=== PATIENT | male | born 1955 | race Caucasian/White ===

== ENCOUNTER 2017-08-11 07:27 | Inpatient (IN) | payer BC, OTHER ==
--- NOTE | 2017-08-11 08:22 | RAD ---
LEFT HIP THREE VIEWS: History: Injury. Fall. Comparison: None. FINDINGS: There is a mildly varus angulated impacted left mid cervical femoral neck fracture. Extensive degener ative changes of the knee with possibly an old fracture of the severe patella with enthesopathic lowe ges of the quadriceps tendon. IMPRESSION: Mildly impacted varus angulated left mid cervical femoral neck fracture. Recommend dedicated knee rad iographs. POS: [facility]
--- NOTE | 2017-08-11 08:56 | RAD ---
ONE VIEW CHEST: History: Hip fracture. Preoperative exam. Comparison: 10-31-08 FINDINGS: Normal cardiac silhouette. The lungs and pleural spaces are clear. No pneumothorax or osseous abnorma lities. IMPRESSION: No acute cardiopulmonary process. POS: [facility]
--- NOTE | 2017-08-11 08:57 | RAD ---
LEFT HIP 2 VIEWS: Date: 08/11/17 HISTORY: Injury. Slipped on floor at work. COMPARISON: None. FINDINGS: There is a mild varus angulated mid cervical left femoral neck fracture. Mild foreshortening. The left obturator ring is intact. Mild narrowing of pubic symphysis. Phleboliths in the pelvis. IMPRESSION: Mild varus angulated and impacted left mid cervical femoral neck fracture. POS: OFF
[2017-08-11 08:58] LABS: #Eosinphils 0.4 thou/uL (0.0-0.7); #Lymphocytes 1.9 thou/uL (1.20-3.40); #Monocytes 0.5 thou/uL (0.11-0.59); #Neutrophils 4.4 thou/uL (1.40-6.50); %Basophils 0.6 % (0.0-1.0); %Eosinophils 5.1 % (0.0-10.0); %Lymphocytes 25.7 % (21.0-51.0); %Monocytes 7.3 % (0.0-10.0); %Neutrophils 61.4 % (42.0-75.0); Hemoglobin 14.4 g/dL (14.0-18.0); Mean Corpuscular HGB CONC 32.9 g/dL (32.0-36.0); Mean Corpuscular Hemoglobin 30.4 pg (27.0-31.0); Mean Corpuscular Volume 92.3 fl (80.0-94.0); Mean Platelet Volume 7.1 fL (7.4-10.4); Platelet Count 230 thou/uL (130-400); RBC Distribution Width 11.8 % (11.5-14.5); Red Blood Cell (RBC) Count 4.74 mill/uL (4.70-6.10); White Blood Cell (WBC) Count 7.2 thou/uL (4.8-10.8)
[2017-08-11 09:19] LABS: ALT (SGPT) 14 U/L (8-55); AST (SGOT) 19 U/L (5-34); Albumin 3.8 g/dL (3.5-5.0); Alkaline Phosphatase 89 U/L (40-150); Anion Gap 12 mmol/L (10-20); BUN (Urea Nitrogen) 10 mg/dL (8.4-25.7); Bilirubin, Total 0.4 mg/dL (0.2-1.2); Calc. Creatinine Clearance 0 mL/min (70-130); Calcium 9.3 mg/dL (7.8-10.44); Carbon Dioxide 25 mmol/L (22-29); Chloride 104 mmol/L (98-107); Estimated GFR-MDRD 85; Globulin 3.2 g/dL (2.4-3.5); Glucose 138 mg/dL (70-105); Potassium 4.3 mmol/L (3.5-5.1); Sodium 137 mmol/L (136-145)
[2017-08-11 09:44] LABS: Bilirubin Negative (Negative); Blood, Urine Negative (Negative); Clarity TURBID (Clear); Glucose, Urine (Dipstick) 100 mg/dL (Negative); Leukocyte Negative (Negative); Nitrite Negative (Negative); Protein, Urine (Dipstick) Trace mg/dL (Neg-Trace); Specific Gravity, Urine 1.021 (1.002-1.036)
[2017-08-11] MEDS ORDERED: Morphine 4 MG/ML VIAL ONE (10:11)
--- NOTE | 2017-08-11 10:36 | RAD ---
LEFT KNEE FOUR VIEWS: HISTORY: Left knee pain. The patient has an old injury of the knee. COMPARISON: 10/23/2016 FINDINGS: Two views of the left knee show remodeling of the patella, likely secondary to a remote healed fractu re. There is calcification of the quadriceps tendon at its insertion into the patella. There is mod erate patellofemoral osteoarthritis. Minimal joint space narrowing is seen in the femorotibial jennifer rtments, consistent with osteoarthritis. No knee effusion is seen. There is no evidence of acute fr acture or dislocation. IMPRESSION: Moderate patellofemoral posttraumatic osteoarthritis. POS: [facility]
[2017-08-11] MEDS ORDERED: Sodium Chloride 0.9% 1,000 ML IV SCH (10:51)
[2017-08-11] MEDS ORDERED: Ondansetron HCl/PF 4 MG/2 ML Vial IVP PRN ×2 (10:51→10:59)
[2017-08-11] MEDS ORDERED: Morphine 4 MG/ML VIAL SLOW IVP PRN ×3 (10:53→10:59)
[2017-08-11] MEDS ORDERED: Dextrose 50% Abboject 50 ML SYRINGE SLOW IVP PRN (10:59)
[2017-08-11] MEDS ORDERED: Dextrose 5% in Water 1,000 ML IV PRN (10:59)
[2017-08-11] MEDS ORDERED: Cyclobenzaprine 10 MG TAB PO PRN (10:59)
[2017-08-11] MEDS ORDERED: Ondansetron ODT 4 MG TAB PO PRN (10:59)
[2017-08-11] MEDS ORDERED: hydrALAZINE 20 MG/ML VIAL SLOW IVP PRN (10:59)
--- NOTE | 2017-08-11 11:07 | HP ---
DATE OF ADMISSION: 08/11/2017 REQUESTING PHYSICIAN: Rufus Xiao M.D. ATTENDING SURGEON: Dr. Hernandez. CONSULTATION: Orthopedics, Dr. Capps. HISTORY OF PRESENT ILLNESS: The patient is a 61-year-old man who was at work when he slipp ed on a concrete floor landing on his left side. The patient had immediate pain to his left hip and was brought by ground EMS to the Emergency Department where he underwent evaluation and examination a nd was noted to have a left femoral neck fracture at which time we were asked to evaluate the patient for admission and obtain orthopedic consultation. The patient denied loss of consciousness, dizzine ss, shortness of breath, chest pain, or any syncopal type episode prior to his fall. ALLERGIES: PENICILLIN. CURRENT MEDICATIONS: None. PAST MEDICAL HISTORY: None. PAST SURGICAL HISTORY: ORIF of left patellar fracture. 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 Th e patient denies drug or tobacco use and drinks rarely. FAMILY MEDICAL HISTORY: Hypertension. REVIEW OF SYSTEMS: Ten-point review of systems negative, unless otherwise stated. PHYSICAL EXAMINATION: VITAL SIGNS: Blood pressure 137/89, heart rate 79, respirations 20, oxygen saturation 96% on room ai r, temperature is 98.1. GENERAL: The patient is resting comfortably in bed. He is awake, alert, and oriented x3. [place] c margo scale is 15. HEENT: Head is normocephalic, atraumatic. Eyes: Extraocular motion intact. PERRLA bilaterally. E ars are atraumatic without discharge. Nose is atraumatic without discharge. Oropharynx is clear. NECK: Nontender. Trachea is midline. No JVD. CHEST: Clear to auscultation with good inspiratory and expiratory effort. HEART: Regular rate and rhythm. ABDOMEN: Soft, flat, and nontender with active bowel sounds. Pelvis is stable with tenderness to pa lpation to left hip consistent with his fracture. EXTREMITIES: Neurovascularly intact x4. Capillary refill is less than 3 seconds. Pulses are 2+. BACK: By report is atraumatic and nontender. LABORATORY DATA: White blood cell count 7.2, hemoglobin 14.4, hematocrit 43.8, platelets 230. Sodiu m 137, potassium 4.3, chloride 104, CO2 25, BUN 10, creatinine 0.91, glucose 138. LFTs are unremarka ble. Urinalysis is unremarkable. RADIOGRAPHIC FINDINGS: AP chest shows no acute cardiopulmonary process. Three views of the left hip shows a mildly impacted varus angulated left mid cervical femoral neck fracture. Two views of the l eft hip showed mild varus angulated impacted left mid cervical femoral neck fracture. ASSESSMENT AND PLAN: 1. Status post ground level fall. 2. Left hip fracture. 3. Acute pain secondary to trauma. Plan will be to admit the patient to the surgical floor after discussion with Dr. Capps. The pat ient will have surgical intervention tomorrow. The patient will be made n.p.o. after midnight. He w ill have pain control, pulmonary toilet, gastritis, mechanical DVT prophylaxis. The evaluation, examination, laboratory and radiographic findings will be discussed with Dr. Mary blancas ter this dictation.
[2017-08-11 11:29] VITALS: BMI 31.9
[2017-08-11] MEDS: Ketorolac Tromethamine 30 MG/ML VIAL IVP SCH ×3 (11:47→23:14)
[2017-08-11] MEDS: Acetaminophen 1,000 MG in Premix Bag 1 BAG IVPB SCH ×3 (11:48→23:14)
--- NOTE | 2017-08-11 13:03 | CON ---
DATE OF CONSULTATION: 08/11/2017 REQUESTING PHYSICIAN: Dr. Justin Hernandez. CONSULTING PHYSICIAN: Dr. Lenard Capps. REASON FOR CONSULTATION: Left hip displaced, shortened femoral neck fracture. BRIEF CLINICAL HISTORY: Beni is a 61-year-old white male that fell earlier today when he slipped on some flower at work. He landed on his left side on a concrete floor, had immediate onset of pain. EMS was dispatched. The patient was brought to [facility] where he was admitt ed to the Trauma team and our service was consulted for definitive orthopedic management of this prob kiah. OBJECTIVE: VITAL SIGNS: Blood pressure is 182/93, respiratory rate is 20, O2 saturation 96% on room air, temper ature 98.3, pulse 82. NEUROLOGIC: He is alert and oriented to person, place, time, and situation. Grossly nonfocal. MUSCULOSKELETAL: Visual inspection of the left lower extremity demonstrates shortening in external r otation relative to the right. He is neurovascularly intact in left lower extremity. He has good di stal pulses. Range of motion of the hips not assessed due to known underlying fracture. IMAGING STUDIES: Two-view left hip demonstrates a mid cervical left femoral neck fracture with short ening, varus angulation. IMPRESSION: Left hip displaced femoral neck fracture in a 61-year-old male. PLAN: 1. Patient will be admitted to trauma 18. 2. The risks, benefits, options, alternatives, and rationale for proceeding with a left total hip ar throplasty for fracture treatment has been explained in great detail to the patient. He is ready to proceed. All questions were answered. No guarantee of outcomes were stated or implied. 3. The patient has been posted for tomorrow about 01:30. 4. N.p.o. after midnight. 5. Please see orders.
[2017-08-11] MEDS: Sodium Chloride 0.9% 1,000 ML IV SCH (17:21)
[2017-08-11] MEDS: Famotidine 20 MG TAB PO SCH (21:15)
[2017-08-12] MEDS: Acetaminophen 1,000 MG in Premix Bag 1 BAG IVPB SCH (05:25)
[2017-08-12] MEDS: Ketorolac Tromethamine 30 MG/ML VIAL IVP SCH (05:26)
[2017-08-12] MEDS: Sodium Chloride 0.9% 1,000 ML IV SCH ×3 (05:30→22:11)
[2017-08-12 05:34] LABS: #Basophils 0.1 thou/uL (0.0-0.2); #Eosinphils 0.9 thou/uL (0.0-0.7); #Lymphocytes 1.9 thou/uL (1.20-3.40); #Monocytes 0.9 thou/uL (0.11-0.59); %Basophils 0.6 % (0.0-1.0); %Lymphocytes 21.6 % (21.0-51.0); %Monocytes 10.7 % (0.0-10.0); %Neutrophils 57.2 % (42.0-75.0); Mean Corpuscular HGB CONC 32.7 g/dL (32.0-36.0); Mean Corpuscular Hemoglobin 30.5 pg (27.0-31.0); Mean Corpuscular Volume 93.4 fl (80.0-94.0); Mean Platelet Volume 7.3 fL (7.4-10.4); Platelet Count 186 thou/uL (130-400); RBC Distribution Width 11.9 % (11.5-14.5); Red Blood Cell (RBC) Count 4.27 mill/uL (4.70-6.10); White Blood Cell (WBC) Count 8.7 thou/uL (4.8-10.8)
[2017-08-12 05:58] LABS: Anion Gap 8 mmol/L (10-20); BUN (Urea Nitrogen) 8 mg/dL (8.4-25.7); Calc. Creatinine Clearance 131 mL/min (70-130); Calcium 8.1 mg/dL (7.8-10.44); Carbon Dioxide 26 mmol/L (22-29); Chloride 106 mmol/L (98-107); Estimated GFR-MDRD Greater than 90; Glucose 125 mg/dL (70-105); Sodium 136 mmol/L (136-145)
[2017-08-12] MEDS ORDERED: Bupivacaine HCl 0.5%/Epinephrine 1:200,000/PF 30 ml Vial ONE (07:00)
[2017-08-12] MEDS: Famotidine 20 MG TAB PO SCH ×2 (07:28→20:34)
[2017-08-12] MEDS ORDERED: Clindamycin/D5W 900 MG in Premix Bag 1 BAG IVPB SCH (07:45)
[2017-08-12] MEDS ORDERED: Clindamycin/D5W 900 mg/50 ml Premix Bag ONE (12:32)
[2017-08-12] MEDS ORDERED: Levofloxacin 500 mg/D5W 100 ml Premix Bag ONE (12:32)
[2017-08-12] MEDS ORDERED: Fentanyl 250 MCG/5 ML VIAL ONE (12:54)
[2017-08-12] MEDS ORDERED: Dexamethasone 4 mg/ml Vial ONE (13:02)
[2017-08-12] MEDS ORDERED: Ketorolac Tromethamine 30 MG/ML VIAL ONE (14:16)
[2017-08-12] MEDS ORDERED: Lidocaine 1% PF 5 ML VIAL ONE (14:16)
[2017-08-12] MEDS ORDERED: PROPOFOL 200 MG/20 ML VIAL ONE (14:16)
[2017-08-12] MEDS ORDERED: Glycopyrrolate 0.2 MG/ML 5 ML SYRINGE ONE (14:16)
--- NOTE | 2017-08-12 15:05 | OP ---
DATE OF PROCEDURE: 08/12/2017 OPERATION PERFORMED: Left total hip arthroplasty. PREOPERATIVE DIAGNOSIS: Left femoral neck fracture. POSTOPERATIVE DIAGNOSIS: Left femoral neck fracture. COMPLICATIONS: None. ESTIMATED BLOOD LOSS: 200 mL ANESTHESIA: General plus regional. SURGEON: Lenard Capps M.D. TERRA COTTA MOLD MAKER: Donald Looney PA-C. IMPLANTS: DePuy [place] stem size 6, high offset, DePuy [place] cup size 54 mm, +5 x 36 mm femoral h ead. INDICATIONS: Mr. Swift is a 61-year-old male who fell at work. He fractured his left femoral neck. He was indicated for total hip arthroplasty given his significant displacement of the fracture and yo sandra age. Risks have been reviewed. Risks to include infection, pain, scarring, nerve or vascular in jury, DVT, PE, hardware failure, instability and others. DESCRIPTION OF PROCEDURE: Mr. Swift was identified in the preoperative holding area. His correct ext remity was marked. He was carried to the operating room. He was positioned supine. General anesthe melyssa was induced. A multidisciplinary timeout was performed. The left lower extremity was prepped an d draped in a sterile fashion. The patient was given intravenous antibiotics. We began the procedure with a posterior approach to the hip. We dissected down through the subcutane ous tissues to the fascia, which was incised. We then worked more deeply and exposed the short exter nal rotators of the hip. These were subperiosteally divided from the proximal femur. We performed a capsulotomy. At this point, the broken femoral head and neck was removed. We performed osteotomy o f the proximal femur. We then exposed the underlying acetabulum. At this point, we debrided the lab rum sharply with a knife. We then reamed with a size 46 reamer up to a size 53 mm reamer. We then i mpacted a 54 mm acetabular shell. A screw was placed within the shell to fix the cup. At this point , we placed our acetabular liner after thorough irrigation. We then moved to the femur. We entered the intramedullary canal of the femur. We reamed up to a siz e 6 reamer. We then broached from a 2 to a 6. We trialed off of this. A +5 femoral head gave the b est range of motion and stability. We removed our trial components. We placed our final components. We thoroughly irrigated. Again, we checked stability and leg length which was acceptable. At this point, we performed a final irrigation and then closure. The capsule and short external rotators we re closed with #5 Ethibond suture through drill holes. We then closed with 2-0 Vicryl and radha fo r the skin. A sterile dressing was applied. The patient was taken to the recovery room at this poin t in good condition without complication.
--- NOTE | 2017-08-12 15:21 | RAD ---
LEFT HIP 1 VIEW: Date: 08/12/17 HISTORY: Hip replacement. FINDINGS/IMPRESSION: Single lateral view shows hip prosthesis in good position without evidence of hardware complication. POS: [facility]
--- NOTE | 2017-08-12 15:22 | RAD ---
AP PELVIS 1 VIEW: Date: 08/12/17 HISTORY: Hip replacement. FINDINGS: AP view shows left hip prosthesis is in good position without evidence of hardware complication. Skin radha and soft tissue gas are apparent. Degenerative changes right hip. Upper pelvis is excluded f rom the image. IMPRESSION: Left hip prosthesis in good radiographic position. POS: [facility]
[2017-08-12] MEDS ORDERED: Promethazine HCl 25 MG/ML VIAL IM PRN (15:30)
[2017-08-12] MEDS ORDERED: Promethazine HCl 25 MG/ML VIAL SLOW IVP PRN (15:30)
[2017-08-12] MEDS ORDERED: Ondansetron HCl/PF 4 MG/2 ML Vial IVP PRN (15:30)
--- NOTE | 2017-08-12 15:38 | PRG-2 ---
DATE OF SERVICE: 08/12/2017 ATTENDING PHYSICIAN: Dr. Servin. SUBJECTIVE: The patient is a 61-year-old male who is status post ground level fall in which he susta ined a left femoral neck fracture. The patient is planned to go to the OR today for repair. He repo rts the pain is well controlled with IV pain medication. No acute events overnight. OBJECTIVE: VITAL SIGNS: This morning, temperature 98.0, pulse 65, respiratory rate 20, O2 sats 96% on room air, and blood pressure 159/81. GENERAL: The patient is alert and oriented x4, no acute distress. HEENT: Atraumatic, normocephalic. CARDIOVASCULAR: Heart regular rate and rhythm. LUNGS: Equal chest rise. No increased work of breathing. EXTREMITIES: Neurovascularly intact x4. The patient is with significant pain and swelling of left h ip. LABORATORY DATA: CBC shows white blood cell count of 8.7, hemoglobin of 13.0, hematocrit 39.9, plate let count of 183. Chemistry reveals sodium of 136, potassium 4.0, chloride 106, carbon dioxide 26, B UN 8, creatinine 0.82, glucose 125 and calcium 8.1. No new images to review. ASSESSMENT: 1. Status post ground level fall. 2. Left hip fracture. 3. Acute pain secondary to trauma. PLAN: The patient is to go to the OR today with Dr. Hermosillo for repair of left hip fracture. Shoshana nue current pain regimen. Plan to start a diet as well as PT, OT after operation. We will place robles ab screening and order for patient to begin process for placement in a rehab facility. Continue [facility] anical DVT prophylaxis at this time and transition over to pharmacologic prophylaxis if the patient i s not able to become mobile after operation. Dr. Servin saw and examined the patient and formulated the plan with me.
[2017-08-12] MEDS ORDERED: Fentanyl 100 MCG/2 ML VIAL ONE (15:44)
[2017-08-12] MEDS ORDERED: traMADol HCl 50 MG TAB PO PRN ×2 (19:44)
[2017-08-12] MEDS ORDERED: HYDROcodone/Acetaminophen 5/325 mg Tablet PO PRN (19:45)
[2017-08-12] MEDS ORDERED: Acetaminophen 500 MG TAB PO PRN (19:45)
[2017-08-12] MEDS: Clindamycin/D5W 900 MG in Premix Bag 1 BAG IVPB SCH (21:59)
[2017-08-13] MEDS: HYDROcodone/Acetaminophen 5/325 mg Tablet PO PRN ×2 (03:38→09:30)
[2017-08-13] MEDS: Sodium Chloride 0.9% 1,000 ML IV SCH ×2 (05:25→16:34)
[2017-08-13] MEDS: Clindamycin/D5W 900 MG in Premix Bag 1 BAG IVPB SCH (05:26)
[2017-08-13] MEDS: Enoxaparin Sodium 40 MG/0.4 ML SYRINGE SC SCH (09:35)
[2017-08-13] MEDS: Famotidine 20 MG TAB PO SCH ×2 (09:35→21:26)
[2017-08-13] MEDS ORDERED: HYDROcodone/Acetaminophen 5/325 mg Tablet PO PRN (16:05)
[2017-08-13] MEDS ORDERED: Acetaminophen 500 MG TAB PO SCH (16:15)
--- NOTE | 2017-08-13 16:28 | PRG ---
DATE OF SERVICE: 08/13/2017 SUBJECTIVE: Mr. Swift is a 61-year-old male status post ground level fall resulting in an isolated hi p fracture. He is postop day #1 status post repair. This morning, he is sitting in a chair, out of bed and vocalizes no complaints. He states that his pain is well controlled. OBJECTIVE: VITAL SIGNS: Temperature 99.1, pulse 89, respirations 17, O2 sat 94% on room air, blood pressure 120 /68. GENERAL: Well-developed male in no acute distress, sitting in a chair, out of bed. PULMONARY: Normal work of breathing. Symmetric rise. CARDIOVASCULAR: Regular rate and rhythm. GASTROINTESTINAL: Abdomen is soft, nontender, and nondistended. MUSCULOSKELETAL: Moves all extremities x4. NEUROLOGIC: No focal deficits noted. ASSESSMENT: 1. Status post ground level fall. 2. Left hip fracture. 3. Acute traumatic pain. PLAN: Adjust pain regimen slightly and schedule pain medication with p.r.n. pain medications for no akthrough pain. Continue PT and OT. Encourage incentive spirometry and pulmonary toileting. Rehab consult placed. Discussed with case management. Patient was discussed with trauma attending.
[2017-08-13] MEDS: Acetaminophen 500 MG TAB PO SCH ×2 (17:29→23:18)
[2017-08-13] MEDS: traMADol HCl 50 MG TAB PO SCH ×2 (17:29→23:18)
[2017-08-14] MEDS: traMADol HCl 50 MG TAB PO SCH ×4 (05:28→23:10)
[2017-08-14] MEDS: Acetaminophen 500 MG TAB PO SCH ×4 (05:28→23:10)
[2017-08-14 06:17] LABS: Anion Gap 8 mmol/L (10-20); BUN (Urea Nitrogen) 13 mg/dL (8.4-25.7); Calc. Creatinine Clearance 116 mL/min (70-130); Carbon Dioxide 27 mmol/L (22-29); Chloride 103 mmol/L (98-107); Estimated GFR-MDRD 84; Glucose 126 mg/dL (70-105); Phosphorus 2.6 mg/dL (2.3-4.7); Potassium 3.8 mmol/L (3.5-5.1)
[2017-08-14 06:21] LABS: Sodium 134 mmol/L (136-145)
[2017-08-14 06:25] LABS: #Eosinphils 0.9 thou/uL (0.0-0.7); #Lymphocytes 1.5 thou/uL (1.20-3.40); #Monocytes 1.5 thou/uL (0.11-0.59); #Neutrophils 6.8 thou/uL (1.40-6.50); %Basophils 0.3 % (0.0-1.0); %Eosinophils 8.3 % (0.0-10.0); %Lymphocytes 14.2 % (21.0-51.0); %Neutrophils 63.1 % (42.0-75.0); Hemoglobin 10.1 g/dL (14.0-18.0); Mean Corpuscular HGB CONC 33.8 g/dL (32.0-36.0); Mean Corpuscular Hemoglobin 31.2 pg (27.0-31.0); Mean Corpuscular Volume 92.4 fl (80.0-94.0); Mean Platelet Volume 7.7 fL (7.4-10.4); Platelet Count 172 thou/uL (130-400); RBC Distribution Width 11.8 % (11.5-14.5); Red Blood Cell (RBC) Count 3.23 mill/uL (4.70-6.10); White Blood Cell (WBC) Count 10.7 thou/uL (4.8-10.8)
[2017-08-14] MEDS: Famotidine 20 MG TAB PO SCH ×2 (09:04→20:24)
[2017-08-14] MEDS: Enoxaparin Sodium 40 MG/0.4 ML SYRINGE SC SCH (09:05)
[2017-08-14] MEDS ORDERED: Milk Of Magnesia 30 ML UDCUP PO PRN (12:31)
--- NOTE | 2017-08-14 16:08 | PRG ---
DATE OF SERVICE: 08/14/2017. SUBJECTIVE: This is a 61-year-old male status post ground level fall resulting in an isolated hip fr acture. He is postop day #02 status post repair. This morning, he is sitting in a chair, out of bed and vocalizes no complaint. His pain is well controlled. He is tolerating a general diet. OBJECTIVE: VITAL SIGNS: Temperature 98.5, pulse 79, respirations 12, O2 sat 96% on room air, blood pressure 148 /81. GENERAL: Well-developed male in no acute distress, sitting in a chair, out of bed. PULMONARY: Normal work of breathing. Symmetric rise. CARDIOVASCULAR: Regular rate and rhythm. GASTROINTESTINAL: Abdomen is soft, nontender, nondistended. MUSCULOSKELETAL: Moves all extremities x4. NEUROLOGIC: No focal deficit noted. ASSESSMENT: 1. Status post ground level fall. 2. Left hip fracture. 3. Acute traumatic pain. PLAN: Continue pain regimen as ordered. Continue PT, OT. Await rehab consult and case management f or disposition. Of note, the patient has not yet had a bowel movement, we will add bowel regimen. T he patient was discussed with trauma attending.
[2017-08-14] MEDS: Senokot S 8.6-50 MG TAB PO SCH (20:23)
[2017-08-14] MEDS: Docusate 100 MG CAP PO SCH (20:23)
[2017-08-15] MEDS: traMADol HCl 50 MG TAB PO SCH ×4 (05:04→23:42)
[2017-08-15] MEDS: Acetaminophen 500 MG TAB PO SCH ×4 (05:04→23:42)
[2017-08-15] MEDS: Docusate 100 MG CAP PO SCH ×2 (08:37→22:15)
[2017-08-15] MEDS: Senokot S 8.6-50 MG TAB PO SCH ×2 (08:37→22:15)
[2017-08-15] MEDS: Famotidine 20 MG TAB PO SCH ×2 (08:37→22:15)
[2017-08-15] MEDS: Enoxaparin Sodium 40 MG/0.4 ML SYRINGE SC SCH (08:38)
[2017-08-15] MEDS: Polyethylene Glycol 3350 17 GM Packet PO SCH (08:38)
--- NOTE | 2017-08-15 15:23 | PRG ---
DATE OF SERVICE: 08/15/2017 SUBJECTIVE: This is a 61-year-old male, status post ground-level fall, postop day #3 hip fracture re pair. This morning, he vocalized no complaint. He has worked with physical therapy. Pain is contro lled with p.o. analgesics. OBJECTIVE: VITAL SIGNS: Temperature 98.2, pulse 70, respirations 16, O2 sat 96% on room air, blood pressure 157 /84. GENERAL: A well-developed male, in no acute distress, resting in bed. PULMONARY: Normal work of breathing. LUNGS: Symmetric rise. CARDIOVASCULAR: Regular rate and rhythm. GASTROINTESTINAL: Abdomen is soft, nontender, nondistended. MUSCULOSKELETAL: Moves all extremities x4. NEUROLOGIC: No focal deficit noted. ASSESSMENT: 1. Status post ground-level fall. 2. Left hip fracture. 3. Acute traumatic pain. PLAN: Continue pain regimen as ordered. Continue PT and OT. Await rehab consult, case management/w orkmen's compensation for disposition. Continue with bowel regimen. Supportive care as ordered. Ahsan meyer was discussed with trauma attending.
[2017-08-16] MEDS: Acetaminophen 500 MG TAB PO SCH ×4 (05:22→23:40)
[2017-08-16] MEDS: traMADol HCl 50 MG TAB PO SCH ×4 (05:23→23:41)
[2017-08-16] MEDS: Polyethylene Glycol 3350 17 GM Packet PO SCH (08:03)
[2017-08-16] MEDS: Senokot S 8.6-50 MG TAB PO SCH ×2 (08:04→20:17)
[2017-08-16] MEDS: Docusate 100 MG CAP PO SCH ×2 (08:04→20:17)
[2017-08-16] MEDS: Famotidine 20 MG TAB PO SCH ×2 (08:04→20:18)
[2017-08-16] MEDS: Enoxaparin Sodium 40 MG/0.4 ML SYRINGE SC SCH (08:05)
--- NOTE | 2017-08-16 14:02 | PRG-2 ---
DATE OF SERVICE: 08/16/2017 ATTENDING PHYSICIAN: Dr. Gerardo Servin SUBJECTIVE: This is a 61-year-old male status post ground level fall, postop day #4 from hip fractur e repair. This morning he is found walking in the halls, doing well without complaints. Pain is con trolled with p.o. pain medications. No acute events overnight. OBJECTIVE: VITAL SIGNS: This morning temperature 98.0, pulse 69, respiratory rate 16, O2 sats 95% on room air, and blood pressure 158/90. GENERAL: The patient is alert and oriented x4, in no acute distress, walking around the hallways wit h physical therapy. PULMONARY: Normal work of breathing. CARDIOVASCULAR: Regular rate and rhythm. MUSCULOSKELETAL: Moves all extremities x4. NEUROLOGIC: No focal deficit noted. ASSESSMENT: 1. Status post ground level fall. 2. Left hip fracture. 3. Acute traumatic pain. PLAN: Continue current pain regimen. Continue PT and OT. Awaiting rehab placement. Case managemen t is working with insurance and workmen's compensation for disposition. Dr. Servin saw and examined the patient and formulated the plan with me.
[2017-08-17] MEDS: Acetaminophen 500 MG TAB PO SCH ×3 (05:14→17:32)
[2017-08-17] MEDS: traMADol HCl 50 MG TAB PO SCH ×3 (05:14→17:32)
[2017-08-17] MEDS: Docusate 100 MG CAP PO SCH (08:57)
[2017-08-17] MEDS: Enoxaparin Sodium 40 MG/0.4 ML SYRINGE SC SCH (08:57)
[2017-08-17] MEDS: Polyethylene Glycol 3350 17 GM Packet PO SCH (08:58)
[2017-08-17] MEDS: Famotidine 20 MG TAB PO SCH (08:58)
[2017-08-17] MEDS: Senokot S 8.6-50 MG TAB PO SCH (08:58)
[2017-08-17 16:00] VITALS: BP 131/70; TEMP 98
--- NOTE | 2017-08-18 05:44 | DIS ---
DATE OF ADMISSION: 08/11/2017 DATE OF DISCHARGE: 08/17/2017 ADMITTING PHYSICIAN: Dr. Hernandez. DISCHARGING PHYSICIAN: Dr. Servin. CONSULTATION: Dr. Capps, orthopedics. REASON FOR HOSPITALIZATION: Ground level fall with left hip pain. HOSPITAL DIAGNOSES: 1. Status post ground level fall. 2. Left hip fracture. 3. Acute traumatic pain. PROCEDURES: Left total hip arthroplasty, date of procedure 08/12/2017. SURGEON: Dr. Lenard Capps. DISPOSITION: Inpatient rehabilitation. DISCHARGE CONDITION: Good. THERAPY: To be determined by shot packer at rehab. FOLLOW UP: Dr. Capps in 2 weeks. BRIEF HISTORY OF HOSPITALIZATION: Mr. Swift is a 61-year-old male who apparently had a fall while he was at work when he slipped on a concrete floor. He was transported to [facility] where left femoral neck fracture was identified. He was admitted to the hospital by Trauma servic . He underwent a left hip hemiarthroplasty by Dr. Capps. He was then managed on the surgical floor. Pain was well controlled. He mobilized with physical and occupational therapy. Case manage ent was consulted for discharge planning. He had no postoperative complications. Once worker's comp ensation insurance approval was obtained, he was discharged to inpatient rehabilitation. He is to fo llow up with Dr. Capps in 2 weeks as listed above. The patient was seen and examined with Dr. Servin who agrees with a plan for discharge.
== END 2017-08-17 18:10 | DRG 470 ==
LOC: ERS 07:27 → SURG A 10:43
PROVIDERS: ADMIT Surgery; ATTEND Surgery
PROC: 0SRB0JZ Replacement of Left Hip Joint with Synthetic Substitute, Open Approach (ICD-10-PCS; principal; 2017-08-12)
DX: S72.002A Fracture of unspecified part of neck of left femur, initial encounter for closed fracture (principal); W01.0XXA Fall on same level from slipping, tripping and stumbling without subsequent striking against object, initial encounter; Z88.0 Allergy status to penicillin
CPT/HCPCS: 36415; 71045; 72170; 80048; 80053; 81003; 83735; 84100; 85025; 86850; 86900; 86901; 93005; 96374; C1776; G0390; G8978-GP-CK; G8979-GP-CJ; G8987-GO-CK; G8988-GO-CI; J0131; J0670; J1100; J1650; J1885; J1956; J2001; J2270; J2704; J3010; J3490

== ENCOUNTER 2022-12-11 08:48 | Inpatient (IN) | payer OTHER ==
[2022-12-11 09:03] LABS: Mean Platelet Volume 9.4 fL (7.4-10.4); RBC Distribution Width 13.2 % (11.5-14.5)
[2022-12-11 09:04] LABS: Delete Auto Diff?? YES; Manual Diff?? YES
[2022-12-11 09:05] LABS: #Basophils 0.1 thou/uL (0.0-0.2); #Eosinphils 0.2 thou/uL (0.0-0.7); #Monocytes 1.2 thou/uL (0.11-0.59); #Neutrophils 8.2 thou/uL (1.40-6.50); %Basophils 0.4 % (0.0-1.0); %Lymphocytes 36.6 % (21.0-51.0); %Monocytes 7.6 % (0.0-10.0); %Neutrophils 53.8 % (42.0-75.0); Hematocrit 33.4 % (42.0-52.0); Hemoglobin 10.6 g/dL (14.0-18.0); Mean Corpuscular HGB CONC 31.7 g/dL (32.0-36.0); Mean Corpuscular Hemoglobin 29.6 pg (27.0-31.0); Mean Corpuscular Volume 93.3 fl (78.0-98.0); Platelet Count 402 10x3/uL (130-400); Red Blood Cell (RBC) Count 3.58 mill/uL (4.70-6.10); White Blood Cell (WBC) Count 15.2 10x3/uL (4.8-10.8)
[2022-12-11 09:15] LABS: INR-International Normal Ratio 1.1; PTT 25.9 sec (22.9-36.1); Prothrombin Time 14.9 sec (12.0-14.7)
[2022-12-11] MEDS ORDERED: Fentanyl CADD 100 ML IV SCH (09:15)
[2022-12-11 09:44] LABS: Burr Cells SLIGHT = 2-5 cells HPF (0-1); CellaVision Operator ID LAB.MJL; Lymphocytes 32 % (21-51); Monocytes 10 % (0-10); Neutrophil 58 % (42-75); Ovalocytes SLIGHT = 2-5 cells HPF (0-1); Platelet Adequacy Comment Platelets Increased; Poikilocytosis SLIGHT = 6-15 cells HPF (0-5); Polychromasia SLIGHT = 2-3 cells HPF (0-2); Total Cell Count 100
[2022-12-11 10:24] LABS: Bacteria/HPF None Seen HPF (None Seen); Bilirubin 1+ (Negative); Blood, Urine Negative (Negative); CAUTI Indications for Culture Alt mental st,lethar; Clarity Clear (Clear); Glucose, Urine (Dipstick) Normal (Negative); Ketone, Urine Negative (Negative); Leukocyte 25 Leu/uL (Negative); Nitrite Negative (Negative); Protein, Urine (Dipstick) 30 mg/dL (Neg-Trace); RBC/HPF 0-3 HPF (0-3); Specific Gravity, Urine 1.022 (1.002-1.036); Squamous Epithelial 0-3 HPF (0-3); Urobilinogen Normal mg/dL (Less than 2)
[2022-12-11 10:25] LABS: Albumin 2.8 g/dL (3.4-4.8); Anion Gap 26 mmol/L (10-20); BUN (Urea Nitrogen) 97 mg/dL (8.4-25.7); Bilirubin, Total 0.4 mg/dL (0.2-1.2); Calc. Creatinine Clearance 0 mL/min (70-130); Calcium 7.9 mg/dL (7.8-10.44); Carbon Dioxide 10 mmol/L (23-31); Chloride 95 mmol/L (98-107); Estimated GFR 5; Glucose 168 mg/dL (80-115); Potassium 5.3 mmol/L (3.5-5.1); Protein, Total 5.9 g/dL (5.8-8.1); Sodium 126 mmol/L (136-145)
[2022-12-11 10:25] LABS: Urine Culture Reflex No No
[2022-12-11 10:26] LABS: ALT (SGPT) 18 U/L (8-55); AST (SGOT) 34 U/L (5-34); Alkaline Phosphatase 65 U/L (40-110); Globulin 3.1 g/dL (2.4-3.5)
[2022-12-11] MEDS ORDERED: Sodium Chloride 0.9% 1,000 ML IV SCH ×2 (10:30→15:30)
[2022-12-11] MEDS ORDERED: Lorazepam 2 MG/ML VIAL ONE ×2 (10:45→13:18)
[2022-12-11] MEDS ORDERED: Bisacodyl 10 MG SUPP PR PRN (12:14)
[2022-12-11] MEDS ORDERED: NOREPINEPHRINE 8 MG/250 ML-D5W 250 ML IVPB PRN (12:14)
[2022-12-11] MEDS ORDERED: niCARdipine 25 MG in Sodium Chloride 0.9% 250 ML 250 ML IVPB PRN (12:14)
[2022-12-11] MEDS ORDERED: Docusate 100 MG CAP PO PRN (12:14)
[2022-12-11] MEDS ORDERED: Ondansetron PF 4 MG/2 ML Vial IVP PRN (12:14)
[2022-12-11] MEDS ORDERED: Ventilator Sedation Protocol 1 EACH FS SCH (12:15)
[2022-12-11] MEDS ORDERED: Famotidine/PF 20 mg/2ml Vial SLOW IVP SCH (12:15)
[2022-12-11] MEDS ORDERED: levETIRAcetam 500 MG/5 ML VIAL SLOW IVP SCH (12:15)
[2022-12-11] MEDS ORDERED: Iopamidol-370 76% 500 ML MDV (1 ML CHARGE) ONE (12:41)
[2022-12-11 13:05] LABS: Magnesium 2.2 mg/dL (1.6-2.6); Phosphorus 7.3 mg/dL (2.3-4.7); Uric Acid 13.1 mg/dL (3.5-7.2)
[2022-12-11 13:06] LABS: Lactic Acid 4.1 mmol/L (0.5-2.2)
[2022-12-11] MEDS: Lorazepam 2 MG/ML VIAL SLOW IVP PRN ×2 (13:20→15:33)
[2022-12-11] MEDS: Sodium Chloride 0.9% 1,000 ML IV SCH ×2 (13:39→20:37)
[2022-12-11] MEDS ORDERED: Propofol BOLUS 1,000 MG/100 ML VIAL IV PRN (13:45)
[2022-12-11] MEDS ORDERED: Propofol 1,000 MG/100 ML VIAL IV PRN (13:45)
[2022-12-11] MEDS ORDERED: Fentanyl BOLUS 250 ML IVPB PRN (13:45)
[2022-12-11] MEDS ORDERED: DISCONTINUE PREVIOUS NARCOTIC PAIN MEDICATIONS AND BENZODIAZEPINES FS SCH (13:45)
[2022-12-11] MEDS ORDERED: Morphine 2 MG/ML VIAL SLOW IVP PRN (13:45)
[2022-12-11] MEDS ORDERED: Sodium Bicarb 50 MEQ/50 ML VIAL ONE (14:22)
[2022-12-11] MEDS ORDERED: Sodium Bicarb 50 MEQ/50 ML VIAL IVP SCH (14:30)
[2022-12-11 14:50] LABS: Bilirubin Negative (Negative); Blood, Urine 2+ (Negative); Clarity Clear (Clear); Glucose, Urine (Dipstick) 50 mg/dL (Negative); Ketone, Urine Negative (Negative); Leukocyte 25 Leu/uL (Negative); Nitrite Negative (Negative); Protein, Urine (Dipstick) 30 mg/dL (Neg-Trace); RBC/HPF 0-3 HPF (0-3); Specific Gravity, Urine 1.023 (1.002-1.036); Squamous Epithelial 0-3 HPF (0-3); Urobilinogen Normal mg/dL (Less than 2)
[2022-12-11 14:51] LABS: Bacteria/HPF 1+ HPF (None Seen)
[2022-12-11] MEDS ORDERED: NOREPINEPHRINE 8 MG/250 ML-D5W 250 ML IVPB SCH (15:45)
[2022-12-11 15:57] LABS: Lactic Acid 2.8 mmol/L (0.5-2.2)
[2022-12-11 16:03] LABS: Anion Gap 20 mmol/L (10-20); BUN (Urea Nitrogen) 90 mg/dL (8.4-25.7); Calc. Creatinine Clearance 10 mL/min (70-130); Calcium 8.1 mg/dL (7.8-10.44); Carbon Dioxide 20 mmol/L (23-31); Chloride 99 mmol/L (98-107); Estimated GFR 7; Glucose 177 mg/dL (80-115); Potassium 4.8 mmol/L (3.5-5.1); Sodium 134 mmol/L (136-145)
[2022-12-11] MEDS: Sodium Bicarbonate 150 MEQ in Dextrose 5% in Water 1,000 ML IV SCH (16:12)
[2022-12-11 16:59] LABS: Actual Bicarbonate (HCO3a) 20.5 mEq/L (22-28); Base Excess (BEa) -3.2 mEq/L (-2.0 to +3.0); Calcium, Ionized (arterial) 0.99 mmol/L (1.12-1.30); Carboxyhemoglobin (COHb) 0.2 gm% (0.0-3.0); Hematocrit-ABG 24 % (42.0-52.0); Hemoglobin (Hb) 8.3 g/dL (14.0-18.0); O2 Tension (PaO2), arterial 135.7 mmHg (> 80.0); Potassium - ABG Lab 4.24 mmol/L (3.70-5.30); pH, Arterial 7.438 (7.35-7.45)
[2022-12-11 17:03] LABS: Puncture Site RRA
[2022-12-11 17:33] LABS: Anion Gap 22 mmol/L (10-20); BUN (Urea Nitrogen) 84 mg/dL (8.4-25.7); Calc. Creatinine Clearance 10 mL/min (70-130); Carbon Dioxide 17 mmol/L (23-31); Chloride 99 mmol/L (98-107); Estimated GFR 7; Glucose 162 mg/dL (80-115); Potassium 4.6 mmol/L (3.5-5.1); Sodium 133 mmol/L (136-145)
[2022-12-11 22:21] LABS: Anion Gap 18 mmol/L (10-20); BUN (Urea Nitrogen) 75 mg/dL (8.4-25.7); Calc. Creatinine Clearance 14 mL/min (70-130); Calcium 7.5 mg/dL (7.8-10.44); Carbon Dioxide 19 mmol/L (23-31); Chloride 102 mmol/L (98-107); Estimated GFR 10; Glucose 164 mg/dL (80-115); Potassium 4.2 mmol/L (3.5-5.1); Sodium 135 mmol/L (136-145)
[2022-12-12] MEDS: Sodium Bicarbonate 150 MEQ in Dextrose 5% in Water 1,000 ML IV SCH ×2 (00:12→08:17)
[2022-12-12 02:42] LABS: Anion Gap 18 mmol/L (10-20); BUN (Urea Nitrogen) 70 mg/dL (8.4-25.7); Calc. Creatinine Clearance 16 mL/min (70-130); Carbon Dioxide 22 mmol/L (23-31); Chloride 101 mmol/L (98-107); Estimated GFR 12; Glucose 197 mg/dL (80-115); Potassium 3.9 mmol/L (3.5-5.1); Sodium 137 mmol/L (136-145)
[2022-12-12] MEDS: Sodium Chloride 0.9% 1,000 ML IV SCH ×3 (04:26→18:00)
[2022-12-12 04:37] LABS: Anion Gap 14 mmol/L (10-20); BUN (Urea Nitrogen) 65 mg/dL (8.4-25.7); Calc. Creatinine Clearance 18 mL/min (70-130); Carbon Dioxide 27 mmol/L (23-31); Chloride 100 mmol/L (98-107); Estimated GFR 14; Glucose 223 mg/dL (80-115); Potassium 3.9 mmol/L (3.5-5.1); Sodium 137 mmol/L (136-145)
[2022-12-12] MEDS: levETIRAcetam 500 MG/5 ML VIAL SLOW IVP SCH ×2 (04:37→15:41)
[2022-12-12 05:33] LABS: #Monocytes 1.2 thou/uL (0.11-0.59); %Lymphocytes 6.5 % (21.0-51.0); %Monocytes 11.1 % (0.0-10.0); %Neutrophils 82.1 % (42.0-75.0); Hematocrit 25.2 % (42.0-52.0); Hemoglobin 8.3 g/dL (14.0-18.0); Mean Corpuscular HGB CONC 32.9 g/dL (32.0-36.0); Mean Corpuscular Hemoglobin 29.7 pg (27.0-31.0); Mean Platelet Volume 9.7 fL (7.4-10.4); Platelet Count 226 10x3/uL (130-400); RBC Distribution Width 13.2 % (11.5-14.5); Red Blood Cell (RBC) Count 2.79 mill/uL (4.70-6.10)
[2022-12-12 05:36] LABS: Mean Corpuscular Volume 90.3 fl (78.0-98.0)
[2022-12-12 06:58] LABS: Base Excess (BEa) 6.6 mEq/L (-2.0 to +3.0); CO2 Tension 32.6 mmHg (35.0-45.0); Calcium, Ionized (arterial) 1.01 mmol/L (1.12-1.30); Carboxyhemoglobin (COHb) 0.3 gm% (0.0-3.0); Hematocrit-ABG 24 % (42.0-52.0); Hemoglobin (Hb) 8.3 g/dL (14.0-18.0); O2 Tension (PaO2), arterial 108.1 mmHg (> 80.0); Potassium - ABG Lab 3.55 mmol/L (3.70-5.30); pH, Arterial 7.567 (7.35-7.45)
[2022-12-12 07:18] LABS: Puncture Site RRA
[2022-12-12 09:01] LABS: Anion Gap 14 mmol/L (10-20); BUN (Urea Nitrogen) 60 mg/dL (8.4-25.7); Calc. Creatinine Clearance 21 mL/min (70-130); Carbon Dioxide 28 mmol/L (23-31); Chloride 99 mmol/L (98-107); Estimated GFR 17; Glucose 216 mg/dL (80-115); Potassium 3.4 mmol/L (3.5-5.1); Sodium 138 mmol/L (136-145)
[2022-12-12] MEDS: Docusate Calcium (SURFAK) 240 MG CAP PO SCH ×2 (11:42→21:00)
[2022-12-12 12:14] LABS: Lactic Acid 2.3 mmol/L (0.5-2.2)
[2022-12-12 12:25] LABS: Anion Gap 16 mmol/L (10-20); BUN (Urea Nitrogen) 54 mg/dL (8.4-25.7); Calc. Creatinine Clearance 24 mL/min (70-130); Calcium 8.1 mg/dL (7.8-10.44); Carbon Dioxide 27 mmol/L (23-31); Chloride 101 mmol/L (98-107); Estimated GFR 20; Glucose 165 mg/dL (80-115); Potassium 3.5 mmol/L (3.5-5.1); Sodium 140 mmol/L (136-145)
[2022-12-12 12:47] LABS: Iron 20 ug/dL (65-175); Iron Binding Capacity, Total 211 mcg/dL (261-462)
[2022-12-12 12:57] LABS: Ferritin 501.54 ng/mL (22-322)
[2022-12-12] MEDS: Fentanyl CADD 100 ML IV SCH (13:32)
[2022-12-13] MEDS: Sodium Chloride 0.9% 1,000 ML IV SCH ×2 (02:04→10:33)
[2022-12-13] MEDS: levETIRAcetam 500 MG/5 ML VIAL SLOW IVP SCH ×2 (02:17→14:22)
[2022-12-13 04:29] LABS: Anion Gap 13 mmol/L (10-20); BUN (Urea Nitrogen) 46 mg/dL (8.4-25.7); Calc. Creatinine Clearance 36 mL/min (70-130); Calcium 8.1 mg/dL (7.8-10.44); Carbon Dioxide 27 mmol/L (23-31); Chloride 106 mmol/L (98-107); Estimated GFR 33; Glucose 130 mg/dL (80-115); Potassium 3.7 mmol/L (3.5-5.1); Sodium 142 mmol/L (136-145)
[2022-12-13] MEDS ORDERED: hydrALAZINE 20 MG/ML VIAL SLOW IVP PRN (06:03)
[2022-12-13] MEDS ORDERED: niMODipine 30 MG CAP PO PRN (07:55)
[2022-12-13 08:14] LABS: Actual Bicarbonate (HCO3a) 29.4 mEq/L (22-28); Base Excess (BEa) 5.4 mEq/L (-2.0 to +3.0); CO2 Tension 41.1 mmHg (35.0-45.0); Calcium, Ionized (arterial) 1.08 mmol/L (1.12-1.30); Carboxyhemoglobin (COHb) 0.4 gm% (0.0-3.0); Hematocrit-ABG 24 % (42.0-52.0); Hemoglobin (Hb) 8.3 g/dL (14.0-18.0); O2 Tension (PaO2), arterial 92.9 mmHg (> 80.0); Potassium - ABG Lab 3.58 mmol/L (3.70-5.30); pH, Arterial 7.473 (7.35-7.45)
[2022-12-13 08:16] LABS: ALV-art Gradient 105.275 mmHg (0-20); Puncture Site RBA
[2022-12-13 08:37] LABS: #Monocytes 1.4 thou/uL (0.11-0.59); #Neutrophils 12.2 thou/uL (1.40-6.50); %Basophils 0.1 % (0.0-1.0); %Eosinophils 0.1 % (0.0-10.0); %Lymphocytes 6.9 % (21.0-51.0); %Monocytes 9.5 % (0.0-10.0); %Neutrophils 82.2 % (42.0-75.0); Hematocrit 26.1 % (42.0-52.0); Hemoglobin 8.1 g/dL (14.0-18.0); Mean Corpuscular Hemoglobin 30.1 pg (27.0-31.0); Mean Platelet Volume 10.1 fL (7.4-10.4); Platelet Count 207 10x3/uL (130-400); RBC Distribution Width 13.2 % (11.5-14.5); Red Blood Cell (RBC) Count 2.69 mill/uL (4.70-6.10); White Blood Cell (WBC) Count 14.9 10x3/uL (4.8-10.8)
[2022-12-13 08:41] LABS: Magnesium 1.9 mg/dL (1.6-2.6); Phosphorus 3.2 mg/dL (2.3-4.7)
[2022-12-13] MEDS: Famotidine/PF 20 mg/2ml Vial SLOW IVP SCH (09:09)
[2022-12-13] MEDS: NS 0.9% w/ 20 MEQ KCL 1,000 ML/1,000 ML BAG IV SCH ×2 (09:14→20:03)
[2022-12-13] MEDS ORDERED: Docusate Sodium 100 MG/10 ML UDCUP PO SCH (09:30)
[2022-12-13] MEDS: Docusate Calcium (SURFAK) 240 MG CAP PO SCH (10:33)
[2022-12-13] MEDS ORDERED: Fentanyl CADD 100 ML ONE (13:14)
[2022-12-13] MEDS: Fentanyl CADD 100 ML IV SCH (13:17)
[2022-12-13] MEDS: Docusate Sodium 100 MG/10 ML UDCUP PO SCH (20:57)
[2022-12-14] MEDS: levETIRAcetam 500 MG/5 ML VIAL SLOW IVP SCH ×2 (02:15→15:26)
[2022-12-14] MEDS: NS 0.9% w/ 20 MEQ KCL 1,000 ML/1,000 ML BAG IV SCH ×2 (03:43→15:26)
[2022-12-14 09:06] LABS: #Eosinphils 0.1 thou/uL (0.0-0.7); #Neutrophils 11.2 thou/uL (1.40-6.50); %Basophils 0.1 % (0.0-1.0); %Eosinophils 0.8 % (0.0-10.0); %Lymphocytes 8.8 % (21.0-51.0); %Monocytes 7.3 % (0.0-10.0); %Neutrophils 82.3 % (42.0-75.0); Hematocrit 27.2 % (42.0-52.0); Hemoglobin 8.2 g/dL (14.0-18.0); Mean Corpuscular HGB CONC 30.1 g/dL (32.0-36.0); Mean Corpuscular Hemoglobin 30.3 pg (27.0-31.0); Mean Corpuscular Volume 100.4 fl (78.0-98.0); Mean Platelet Volume 9.8 fL (7.4-10.4); Platelet Count 195 10x3/uL (130-400); RBC Distribution Width 13.2 % (11.5-14.5); Red Blood Cell (RBC) Count 2.71 mill/uL (4.70-6.10); White Blood Cell (WBC) Count 13.7 10x3/uL (4.8-10.8)
[2022-12-14 09:23] LABS: ALT (SGPT) 19 U/L (8-55); AST (SGOT) 19 U/L (5-34); Albumin 2.8 g/dL (3.4-4.8); Alkaline Phosphatase 57 U/L (40-110); Anion Gap 11 mmol/L (10-20); BUN (Urea Nitrogen) 30 mg/dL (8.4-25.7); Bilirubin, Total 0.3 mg/dL (0.2-1.2); Calc. Creatinine Clearance 55 mL/min (70-130); Calcium 8.2 mg/dL (7.8-10.44); Carbon Dioxide 29 mmol/L (23-31); Chloride 112 mmol/L (98-107); Estimated GFR 51; Glucose 179 mg/dL (80-115); Magnesium 1.9 mg/dL (1.6-2.6); Potassium 4.5 mmol/L (3.5-5.1); Protein, Total 5.8 g/dL (5.8-8.1); Sodium 147 mmol/L (136-145)
[2022-12-14 09:32] LABS: Phosphorus 2.1 mg/dL (2.3-4.7)
[2022-12-14] MEDS: Docusate Sodium 100 MG/10 ML UDCUP PO SCH ×2 (09:41→21:11)
[2022-12-14 15:55] LABS: Anion Gap 10 mmol/L (10-20); BUN (Urea Nitrogen) 28 mg/dL (8.4-25.7); Calc. Creatinine Clearance 62 mL/min (70-130); Calcium 8.5 mg/dL (7.8-10.44); Carbon Dioxide 28 mmol/L (23-31); Chloride 114 mmol/L (98-107); Estimated GFR 58; Glucose 137 mg/dL (80-115); Potassium 4.6 mmol/L (3.5-5.1); Sodium 147 mmol/L (136-145)
[2022-12-14] MEDS: Ipratropium/Albuterol 3 ML NEB NEB SCH ×2 (18:06→21:36)
[2022-12-14] MEDS: Famotidine/PF 20 mg/2ml Vial SLOW IVP SCH (19:17)
[2022-12-14] MEDS ORDERED: DC Sedation Protocol FS ONE (19:48)
[2022-12-14] MEDS ORDERED: Haloperidol Lactate 5 MG/ML VIAL SLOW IVP PRN (19:52)
[2022-12-14] MEDS: Lorazepam 2 MG/ML VIAL SLOW IVP PRN (21:30)
[2022-12-15] MEDS: NS 0.9% w/ 20 MEQ KCL 1,000 ML/1,000 ML BAG IV SCH ×2 (00:39→11:21)
[2022-12-15] MEDS: levETIRAcetam 500 MG/5 ML VIAL SLOW IVP SCH ×2 (02:02→14:36)
[2022-12-15] MEDS: Ipratropium/Albuterol 3 ML NEB NEB SCH ×6 (02:08→22:30)
[2022-12-15] MEDS: Acetylcysteine 20% 200 MG/ML 30 ML VIAL INH SCH ×2 (02:09→09:27)
[2022-12-15] MEDS: Lorazepam 2 MG/ML VIAL SLOW IVP PRN (06:07)
[2022-12-15] MEDS ORDERED: niCARdipine 25 MG in Sodium Chloride 0.9% 250 ML 250 ML IVPB PRN (09:04)
[2022-12-15] MEDS: Docusate Sodium 100 MG/10 ML UDCUP PO SCH ×2 (09:18→21:09)
[2022-12-15] MEDS: Famotidine/PF 20 mg/2ml Vial SLOW IVP SCH ×2 (09:19→21:09)
[2022-12-15 09:31] LABS: Anion Gap 16 mmol/L (10-20); BUN (Urea Nitrogen) 22 mg/dL (8.4-25.7); Calc. Creatinine Clearance 63 mL/min (70-130); Calcium 8.6 mg/dL (7.8-10.44); Carbon Dioxide 20 mmol/L (23-31); Chloride 119 mmol/L (98-107); Estimated GFR 58; Glucose 186 mg/dL (80-115); Potassium 5.5 mmol/L (3.5-5.1); Sodium 149 mmol/L (136-145)
[2022-12-15] MEDS ORDERED: Furosemide 20 MG/2 ML VIAL SLOW IVP SCH (10:15)
[2022-12-15] MEDS ORDERED: hydrALAZINE 20 MG/ML VIAL SLOW IVP PRN (10:23)
[2022-12-15] MEDS ORDERED: Amlodipine 10 MG TAB PO SCH (10:30)
[2022-12-15] MEDS ORDERED: Acetylcysteine 20% 200 MG/ML 30 ML VIAL INH SCH (15:00)
[2022-12-15] MEDS: Labetalol HCl 100 MG/20 ML VIAL SLOW IVP PRN ×2 (18:06→23:12)
[2022-12-15] MEDS ORDERED: Furosemide 40 MG/4 ML VIAL SLOW IVP SCH (20:45)
[2022-12-15 20:58] LABS: Anion Gap 11 mmol/L (10-20); BUN (Urea Nitrogen) 20 mg/dL (8.4-25.7); Calc. Creatinine Clearance 63 mL/min (70-130); Calcium 8.7 mg/dL (7.8-10.44); Carbon Dioxide 29 mmol/L (23-31); Chloride 114 mmol/L (98-107); Estimated GFR 58; Glucose 176 mg/dL (80-115); Potassium 4.2 mmol/L (3.5-5.1); Sodium 150 mmol/L (136-145)
[2022-12-16] MEDS: levETIRAcetam 500 MG/5 ML VIAL SLOW IVP SCH ×2 (01:32→14:51)
[2022-12-16] MEDS: Ipratropium/Albuterol 3 ML NEB NEB SCH ×6 (02:08→21:32)
[2022-12-16] MEDS: Labetalol HCl 100 MG/20 ML VIAL SLOW IVP PRN ×2 (04:18→06:21)
[2022-12-16 07:18] LABS: #Eosinphils 0.3 thou/uL (0.0-0.7); #Neutrophils 9.7 thou/uL (1.40-6.50); %Basophils 0.2 % (0.0-1.0); %Eosinophils 2.2 % (0.0-10.0); %Lymphocytes 8.4 % (21.0-51.0); %Monocytes 8.4 % (0.0-10.0); %Neutrophils 79.9 % (42.0-75.0); Hematocrit 25.7 % (42.0-52.0); Hemoglobin 7.7 g/dL (14.0-18.0); Mean Corpuscular Hemoglobin 29.7 pg (27.0-31.0); Mean Corpuscular Volume 99.2 fl (78.0-98.0); Mean Platelet Volume 9.9 fL (7.4-10.4); Platelet Count 229 10x3/uL (130-400); RBC Distribution Width 13.2 % (11.5-14.5); Red Blood Cell (RBC) Count 2.59 mill/uL (4.70-6.10); White Blood Cell (WBC) Count 12.1 10x3/uL (4.8-10.8)
[2022-12-16 07:46] LABS: Anion Gap 10 mmol/L (10-20); BUN (Urea Nitrogen) 21 mg/dL (8.4-25.7); Calc. Creatinine Clearance 53 mL/min (70-130); Calcium 8.7 mg/dL (7.8-10.44); Carbon Dioxide 31 mmol/L (23-31); Chloride 113 mmol/L (98-107); Estimated GFR 49; Glucose 197 mg/dL (80-115); Magnesium 1.9 mg/dL (1.6-2.6); Phosphorus 2.3 mg/dL (2.3-4.7); Sodium 150 mmol/L (136-145)
[2022-12-16] MEDS ORDERED: Carvedilol 3.125 MG TAB PO SCH (08:30)
[2022-12-16] MEDS: Atorvastatin Calcium 20 MG TAB PO SCH (08:55)
[2022-12-16] MEDS: Amlodipine 10 MG TAB PO SCH (08:55)
[2022-12-16] MEDS: Famotidine/PF 20 mg/2ml Vial SLOW IVP SCH ×2 (09:02→20:29)
[2022-12-16] MEDS: Docusate Sodium 100 MG/10 ML UDCUP PO SCH ×2 (09:02→20:28)
[2022-12-16] MEDS ORDERED: Midazolam HCl 2 mg/2 ml Vial ONE (09:17)
[2022-12-16] MEDS ORDERED: Fentanyl BOLUS 250 ML IVPB PRN (09:45)
[2022-12-16] MEDS ORDERED: Propofol BOLUS 1,000 MG/100 ML VIAL IV PRN (09:45)
[2022-12-16] MEDS ORDERED: Propofol 1,000 MG/100 ML VIAL IV PRN (09:45)
[2022-12-16] MEDS ORDERED: Morphine 2 MG/ML VIAL SLOW IVP PRN (09:45)
[2022-12-16] MEDS ORDERED: Lorazepam 2 MG/ML VIAL SLOW IVP PRN (09:45)
[2022-12-16] MEDS: Fentanyl CADD 100 ML IV SCH (10:13)
[2022-12-16] MEDS: Acetaminophen 325 MG TAB PER TUBE PRN (12:42)
[2022-12-16] MEDS: Carvedilol 3.125 MG TAB PO SCH (17:24)
[2022-12-16] MEDS ORDERED: VANCOMYCIN 2 GRAM/500 ML BAG 2 GM in Premix Bag 1 BAG IVPB SCH (17:45)
[2022-12-16] MEDS: Cefepime 1 GM in Sodium Chloride 0.9% 100 ML IVPB SCH (20:28)
[2022-12-16] MEDS ORDERED: Vancomycin HCl 1.25 GM in Sodium Chloride 0.9% 250 ML 300 ML IVPB SCH (21:00)
[2022-12-17] MEDS: levETIRAcetam 500 MG/5 ML VIAL SLOW IVP SCH ×2 (02:03→13:39)
[2022-12-17] MEDS: Ipratropium/Albuterol 3 ML NEB NEB SCH ×6 (02:12→21:48)
[2022-12-17 03:54] LABS: #Eosinphils 0.3 thou/uL (0.0-0.7); #Monocytes 1.5 thou/uL (0.11-0.59); #Neutrophils 10.8 thou/uL (1.40-6.50); %Basophils 0.1 % (0.0-1.0); %Lymphocytes 8.5 % (21.0-51.0); %Monocytes 10.6 % (0.0-10.0); Hematocrit 25.8 % (42.0-52.0); Hemoglobin 7.8 g/dL (14.0-18.0); Mean Corpuscular HGB CONC 30.2 g/dL (32.0-36.0); Mean Corpuscular Hemoglobin 29.9 pg (27.0-31.0); Mean Corpuscular Volume 98.9 fl (78.0-98.0); Mean Platelet Volume 9.9 fL (7.4-10.4); Platelet Count 224 10x3/uL (130-400); RBC Distribution Width 13.5 % (11.5-14.5); Red Blood Cell (RBC) Count 2.61 mill/uL (4.70-6.10); White Blood Cell (WBC) Count 13.9 10x3/uL (4.8-10.8)
[2022-12-17 04:20] LABS: Anion Gap 9 mmol/L (10-20); BUN (Urea Nitrogen) 30 mg/dL (8.4-25.7); Calc. Creatinine Clearance 58 mL/min (70-130); Calcium 8.4 mg/dL (7.8-10.44); Carbon Dioxide 30 mmol/L (23-31); Chloride 114 mmol/L (98-107); Estimated GFR 54; Glucose 224 mg/dL (80-115); Phosphorus 2.5 mg/dL (2.3-4.7); Sodium 149 mmol/L (136-145)
[2022-12-17] MEDS: Carvedilol 3.125 MG TAB PO SCH ×2 (09:04→16:21)
[2022-12-17] MEDS: Atorvastatin Calcium 20 MG TAB PO SCH (09:04)
[2022-12-17] MEDS: Cefepime 1 GM in Sodium Chloride 0.9% 100 ML IVPB SCH ×2 (09:04→20:10)
[2022-12-17] MEDS: Docusate Sodium 100 MG/10 ML UDCUP PO SCH ×2 (09:04→20:10)
[2022-12-17] MEDS: Amlodipine 10 MG TAB PO SCH (09:04)
[2022-12-17] MEDS: Famotidine/PF 20 mg/2ml Vial SLOW IVP SCH ×2 (09:04→20:10)
[2022-12-17] MEDS ORDERED: Glucagon 1 MG/ML KIT IM PRN (09:45)
[2022-12-17] MEDS ORDERED: Dextrose 50% Abboject 50 ML SYRINGE IVP PRN (09:45)
[2022-12-17] MEDS ORDERED: HumaLOG 300 UNITS/3 ML VIAL SC PRN (09:45)
[2022-12-17] MEDS ORDERED: Dextrose 5% in Water 1,000 ML IV PRN (09:45)
[2022-12-17] MEDS ORDERED: Vecuronium 10 MG VIAL IV PRN ×2 (10:23→11:45)
[2022-12-17] MEDS: HumaLOG 300 UNITS/3 ML VIAL SC PRN ×2 (11:28→22:18)
[2022-12-17] MEDS: Acetaminophen 325 MG TAB PER TUBE PRN (16:21)
[2022-12-17] MEDS: Vancomycin 1.5 GRAM/300 ML BAG 1.5 GM in Premix Bag 1 BAG IVPB SCH (18:56)
[2022-12-18] MEDS: Ipratropium/Albuterol 3 ML NEB NEB SCH ×6 (02:17→21:55)
[2022-12-18] MEDS: levETIRAcetam 500 MG/5 ML VIAL SLOW IVP SCH ×2 (02:22→14:58)
[2022-12-18 04:12] LABS: #Eosinphils 0.5 thou/uL (0.0-0.7); #Monocytes 1.5 thou/uL (0.11-0.59); #Neutrophils 9.3 thou/uL (1.40-6.50); %Basophils 0.2 % (0.0-1.0); %Lymphocytes 10.5 % (21.0-51.0); %Monocytes 11.3 % (0.0-10.0); %Neutrophils 72.6 % (42.0-75.0); Hematocrit 26.2 % (42.0-52.0); Hemoglobin 7.7 g/dL (14.0-18.0); Mean Corpuscular HGB CONC 29.4 g/dL (32.0-36.0); Mean Corpuscular Hemoglobin 29.5 pg (27.0-31.0); Mean Corpuscular Volume 100.4 fl (78.0-98.0); Mean Platelet Volume 9.9 fL (7.4-10.4); Platelet Count 241 10x3/uL (130-400); RBC Distribution Width 13.4 % (11.5-14.5); Red Blood Cell (RBC) Count 2.61 mill/uL (4.70-6.10); White Blood Cell (WBC) Count 12.8 10x3/uL (4.8-10.8)
[2022-12-18 04:34] LABS: Anion Gap 11 mmol/L (10-20); BUN (Urea Nitrogen) 30 mg/dL (8.4-25.7); Calc. Creatinine Clearance 69 mL/min (70-130); Calcium 8.5 mg/dL (7.8-10.44); Carbon Dioxide 30 mmol/L (23-31); Chloride 116 mmol/L (98-107); Estimated GFR 68; Glucose 134 mg/dL (80-115); Magnesium 2.2 mg/dL (1.6-2.6); Phosphorus 2.7 mg/dL (2.3-4.7)
[2022-12-18 04:37] LABS: Methylmalonic Acid 258 nmol/L (0-378)
[2022-12-18 04:55] LABS: Sodium 153 mmol/L (136-145)
[2022-12-18] MEDS ORDERED: Vecuronium 10 MG VIAL IVP SCH (06:00)
[2022-12-18] MEDS ORDERED: Midazolam HCl 2 mg/2 ml Vial SLOW IVP SCH (08:00)
[2022-12-18] MEDS: Docusate Sodium 100 MG/10 ML UDCUP PO SCH ×3 (09:00→21:42)
[2022-12-18] MEDS: Amlodipine 10 MG TAB PO SCH (09:00)
[2022-12-18] MEDS: Atorvastatin Calcium 20 MG TAB PO SCH (09:00)
[2022-12-18] MEDS: Famotidine/PF 20 mg/2ml Vial SLOW IVP SCH ×2 (09:29→21:28)
[2022-12-18] MEDS: Cefepime 1 GM in Sodium Chloride 0.9% 100 ML IVPB SCH ×2 (09:29→21:28)
[2022-12-18] MEDS: Carvedilol 3.125 MG TAB PO SCH ×2 (09:37→17:40)
[2022-12-18] MEDS ORDERED: fentaNYL 50 mcg/mL 1 mL Vial SLOW IVP PRN (09:45)
[2022-12-18] MEDS ORDERED: Lidocaine 1% w/Epinephrine 1:100K 20 ML VIAL IJ PRN (09:53)
[2022-12-18] MEDS ORDERED: Midazolam HCl 2 mg/2 ml Vial ONE (10:19)
[2022-12-18] MEDS ORDERED: Dextrose 5%-Lactated Ringers 1,000 ML IV SCH (17:00)
[2022-12-18] MEDS ORDERED: Fentanyl CADD 100 ML ONE (17:29)
[2022-12-18] MEDS: Fentanyl CADD 100 ML IV SCH (17:32)
[2022-12-18 18:02] LABS: Vancomycin, Trough 8.9 ug/mL
[2022-12-18] MEDS: Vancomycin 1.5 GRAM/300 ML BAG 1.5 GM in Premix Bag 1 BAG IVPB SCH (18:46)
[2022-12-18] MEDS: Vancomycin 1 GM in Premix Bag 1 BAG IVPB SCH (18:46)
[2022-12-19] MEDS: levETIRAcetam 500 MG/5 ML VIAL SLOW IVP SCH ×2 (01:35→14:39)
[2022-12-19] MEDS: Ipratropium/Albuterol 3 ML NEB NEB SCH ×6 (01:58→22:04)
[2022-12-19] MEDS: Vancomycin 1 GM in Premix Bag 1 BAG IVPB SCH (07:14)
[2022-12-19 08:09] LABS: Anion Gap 8 mmol/L (10-20); BUN (Urea Nitrogen) 28 mg/dL (8.4-25.7); Calc. Creatinine Clearance 72 mL/min (70-130); Calcium 8.7 mg/dL (7.8-10.44); Carbon Dioxide 30 mmol/L (23-31); Chloride 117 mmol/L (98-107); Estimated GFR 72; Glucose 189 mg/dL (80-115); Potassium 3.8 mmol/L (3.5-5.1)
[2022-12-19 08:16] LABS: Sodium 151 mmol/L (136-145)
[2022-12-19] MEDS: Docusate Sodium 100 MG/10 ML UDCUP PO SCH ×2 (09:14→21:42)
[2022-12-19] MEDS: Famotidine/PF 20 mg/2ml Vial SLOW IVP SCH ×2 (09:14→21:42)
[2022-12-19] MEDS: Cefepime 1 GM in Sodium Chloride 0.9% 100 ML IVPB SCH (09:14)
[2022-12-19] MEDS: Carvedilol 3.125 MG TAB PO SCH ×2 (09:14→18:10)
[2022-12-19] MEDS: Amlodipine 10 MG TAB PO SCH (09:14)
[2022-12-19] MEDS: Atorvastatin Calcium 20 MG TAB PO SCH (09:14)
[2022-12-19] MEDS ORDERED: CEFAZOLIN 2 GM VIAL SLOW IVP SCH (14:00)
[2022-12-19] MEDS: Dextrose 5% in Water 1,000 ML IV SCH (18:02)
[2022-12-19] MEDS: HumaLOG 300 UNITS/3 ML VIAL SC PRN (18:10)
[2022-12-19] MEDS: CEFAZOLIN 2 GM in Sodium Chloride 0.9% 100 ML IVPB SCH (21:47)
[2022-12-20] MEDS: levETIRAcetam 500 MG/5 ML VIAL SLOW IVP SCH ×2 (01:18→14:46)
[2022-12-20] MEDS: Ipratropium/Albuterol 3 ML NEB NEB SCH ×6 (01:48→22:32)
[2022-12-20 04:56] LABS: #Eosinphils 0.5 thou/uL (0.0-0.7); #Monocytes 0.8 thou/uL (0.11-0.59); #Neutrophils 6.2 thou/uL (1.40-6.50); %Basophils 0.2 % (0.0-1.0); %Eosinophils 5.8 % (0.0-10.0); %Lymphocytes 16.5 % (21.0-51.0); %Monocytes 8.7 % (0.0-10.0); %Neutrophils 67.6 % (42.0-75.0); Hematocrit 23.9 % (42.0-52.0); Hemoglobin 7.1 g/dL (14.0-18.0); Mean Corpuscular HGB CONC 29.7 g/dL (32.0-36.0); Mean Corpuscular Hemoglobin 29.3 pg (27.0-31.0); Mean Corpuscular Volume 98.8 fl (78.0-98.0); Platelet Count 244 10x3/uL (130-400); RBC Distribution Width 13.2 % (11.5-14.5); Red Blood Cell (RBC) Count 2.42 mill/uL (4.70-6.10); White Blood Cell (WBC) Count 9.1 10x3/uL (4.8-10.8)
[2022-12-20] MEDS: CEFAZOLIN 2 GM in Sodium Chloride 0.9% 100 ML IVPB SCH (05:02)
[2022-12-20] MEDS: HumaLOG 300 UNITS/3 ML VIAL SC PRN ×3 (05:02→22:08)
[2022-12-20 05:21] LABS: Anion Gap 11 mmol/L (10-20); BUN (Urea Nitrogen) 27 mg/dL (8.4-25.7); Calc. Creatinine Clearance 66 mL/min (70-130); Calcium 8.6 mg/dL (7.8-10.44); Carbon Dioxide 31 mmol/L (23-31); Chloride 118 mmol/L (98-107); Estimated GFR 65; Glucose 196 mg/dL (80-115); Potassium 3.7 mmol/L (3.5-5.1)
[2022-12-20 05:29] LABS: Sodium 156 mmol/L (136-145)
[2022-12-20] MEDS: Dextrose 5% in Water 1,000 ML IV SCH ×2 (05:54→17:28)
[2022-12-20] MEDS: Atorvastatin Calcium 20 MG TAB PO SCH (08:27)
[2022-12-20] MEDS: Amlodipine 10 MG TAB PO SCH (08:27)
[2022-12-20] MEDS: Docusate Sodium 100 MG/10 ML UDCUP PO SCH ×2 (08:27→20:21)
[2022-12-20] MEDS: Famotidine/PF 20 mg/2ml Vial SLOW IVP SCH ×2 (08:27→20:21)
[2022-12-20] MEDS: Carvedilol 3.125 MG TAB PO SCH ×2 (08:27→17:36)
[2022-12-20] MEDS ORDERED: [UNRECOGNIZED DRUG - REMARK] FS SCH (12:45)
[2022-12-20] MEDS: CEFAZOLIN 2 GM in Dextrose 5% in Water 100 ML IVPB SCH ×2 (14:46→22:01)
[2022-12-20 16:45] LABS: #Eosinphils 0.5 thou/uL (0.0-0.7); #Neutrophils 7.9 thou/uL (1.40-6.50); %Basophils 0.3 % (0.0-1.0); %Eosinophils 4.4 % (0.0-10.0); %Lymphocytes 12.7 % (21.0-51.0); %Monocytes 8.7 % (0.0-10.0); %Neutrophils 71.4 % (42.0-75.0); Hematocrit 26.3 % (42.0-52.0); Hemoglobin 7.5 g/dL (14.0-18.0); Mean Corpuscular HGB CONC 28.5 g/dL (32.0-36.0); Mean Corpuscular Hemoglobin 29.1 pg (27.0-31.0); Mean Platelet Volume 10.2 fL (7.4-10.4); Platelet Count 253 10x3/uL (130-400); RBC Distribution Width 13.4 % (11.5-14.5); Red Blood Cell (RBC) Count 2.58 mill/uL (4.70-6.10); White Blood Cell (WBC) Count 11.1 10x3/uL (4.8-10.8)
[2022-12-20 17:06] LABS: Anion Gap 15 mmol/L (10-20); BUN (Urea Nitrogen) 25 mg/dL (8.4-25.7); Calc. Creatinine Clearance 71 mL/min (70-130); Calcium 8.8 mg/dL (7.8-10.44); Carbon Dioxide 27 mmol/L (23-31); Chloride 116 mmol/L (98-107); Estimated GFR 70; Glucose 158 mg/dL (80-115); Potassium 3.7 mmol/L (3.5-5.1)
[2022-12-20 17:14] LABS: CellaVision Operator ID LAB.MJL; Macrocytosis SLIGHT = 6-15 cells HPF (0-5); Ovalocytes SLIGHT = 2-5 cells HPF (0-1); Platelet Adequacy Comment Platelets Normal; Polychromasia SLIGHT = 2-3 cells HPF (0-2)
[2022-12-20 17:15] LABS: Mean Corpuscular Volume 101.9 fl (78.0-98.0)
[2022-12-20 17:18] LABS: Sodium 154 mmol/L (136-145)
[2022-12-21] MEDS: Ipratropium/Albuterol 3 ML NEB NEB SCH ×6 (02:05→21:51)
[2022-12-21] MEDS: levETIRAcetam 500 MG/5 ML VIAL SLOW IVP SCH ×2 (02:28→15:14)
[2022-12-21 04:13] LABS: #Eosinphils 0.5 thou/uL (0.0-0.7); #Monocytes 0.8 thou/uL (0.11-0.59); #Neutrophils 7.4 thou/uL (1.40-6.50); %Basophils 0.4 % (0.0-1.0); %Lymphocytes 15.6 % (21.0-51.0); %Monocytes 7.4 % (0.0-10.0); %Neutrophils 69.6 % (42.0-75.0); Hematocrit 23.8 % (42.0-52.0); Hemoglobin 7.1 g/dL (14.0-18.0); Mean Corpuscular HGB CONC 29.8 g/dL (32.0-36.0); Mean Corpuscular Hemoglobin 29.2 pg (27.0-31.0); Mean Platelet Volume 11.4 fL (7.4-10.4); Platelet Count 187 10x3/uL (130-400); RBC Distribution Width 13.2 % (11.5-14.5); Red Blood Cell (RBC) Count 2.43 mill/uL (4.70-6.10); White Blood Cell (WBC) Count 10.7 10x3/uL (4.8-10.8)
[2022-12-21 04:19] LABS: Mean Corpuscular Volume 97.9 fl (78.0-98.0)
[2022-12-21 04:33] LABS: Anion Gap 12 mmol/L (10-20); BUN (Urea Nitrogen) 23 mg/dL (8.4-25.7); Calc. Creatinine Clearance 76 mL/min (70-130); Calcium 8.4 mg/dL (7.8-10.44); Carbon Dioxide 31 mmol/L (23-31); Chloride 111 mmol/L (98-107); Estimated GFR 75; Glucose 193 mg/dL (80-115); Potassium 3.5 mmol/L (3.5-5.1); Sodium 150 mmol/L (136-145)
[2022-12-21] MEDS: CEFAZOLIN 2 GM in Dextrose 5% in Water 100 ML IVPB SCH ×3 (05:39→21:31)
[2022-12-21] MEDS: Dextrose 5% in Water 1,000 ML IV SCH (06:42)
[2022-12-21] MEDS: Famotidine/PF 20 mg/2ml Vial SLOW IVP SCH ×2 (09:19→21:31)
[2022-12-21] MEDS: Atorvastatin Calcium 20 MG TAB PO SCH (09:19)
[2022-12-21] MEDS: Amlodipine 10 MG TAB PO SCH (09:19)
[2022-12-21] MEDS: Carvedilol 3.125 MG TAB PO SCH ×2 (09:20→16:55)
[2022-12-21] MEDS: Docusate Sodium 100 MG/10 ML UDCUP PO SCH ×2 (09:21→21:31)
[2022-12-21] MEDS: HumaLOG 300 UNITS/3 ML VIAL SC PRN (10:53)
[2022-12-22] MEDS: levETIRAcetam 500 MG/5 ML VIAL SLOW IVP SCH ×2 (02:40→13:09)
[2022-12-22] MEDS: Ipratropium/Albuterol 3 ML NEB NEB SCH ×6 (03:03→22:14)
[2022-12-22] MEDS: CEFAZOLIN 2 GM in Dextrose 5% in Water 100 ML IVPB SCH ×3 (06:30→21:12)
[2022-12-22] MEDS: Atorvastatin Calcium 20 MG TAB PO SCH (08:25)
[2022-12-22] MEDS: Famotidine/PF 20 mg/2ml Vial SLOW IVP SCH ×2 (08:25→21:12)
[2022-12-22] MEDS: Amlodipine 10 MG TAB PO SCH (08:25)
[2022-12-22] MEDS: Docusate Sodium 100 MG/10 ML UDCUP PO SCH ×2 (08:25→21:13)
[2022-12-22] MEDS: Carvedilol 3.125 MG TAB PO SCH ×2 (08:26→17:27)
[2022-12-22 08:59] LABS: Anion Gap 14 mmol/L (10-20); BUN (Urea Nitrogen) 22 mg/dL (8.4-25.7); Calc. Creatinine Clearance 79 mL/min (70-130); Calcium 8.3 mg/dL (7.8-10.44); Carbon Dioxide 24 mmol/L (23-31); Chloride 108 mmol/L (98-107); Estimated GFR 80; Glucose 210 mg/dL (80-115); Potassium 4.4 mmol/L (3.5-5.1); Sodium 142 mmol/L (136-145)
[2022-12-22] MEDS: HumaLOG 300 UNITS/3 ML VIAL SC PRN (10:50)
[2022-12-23] MEDS: Ipratropium/Albuterol 3 ML NEB NEB SCH ×4 (02:01→14:58)
[2022-12-23] MEDS: levETIRAcetam 500 MG/5 ML VIAL SLOW IVP SCH ×2 (02:07→13:52)
[2022-12-23] MEDS: CEFAZOLIN 2 GM in Dextrose 5% in Water 100 ML IVPB SCH (05:50)
[2022-12-23 06:10] VITALS: BMI 24.6
[2022-12-23 08:14] VITALS: TEMP 99.8
[2022-12-23] MEDS: Docusate Sodium 100 MG/10 ML UDCUP PO SCH (08:15)
[2022-12-23] MEDS: Carvedilol 3.125 MG TAB PO SCH (08:42)
[2022-12-23] MEDS: Amlodipine 10 MG TAB PO SCH (08:43)
[2022-12-23] MEDS: Famotidine/PF 20 mg/2ml Vial SLOW IVP SCH (08:43)
[2022-12-23] MEDS: Atorvastatin Calcium 20 MG TAB PO SCH (08:43)
[2022-12-23] MEDS: HumaLOG 300 UNITS/3 ML VIAL SC PRN (11:03)
[2022-12-23 15:11] VITALS: BP 124/71
== END 2022-12-23 15:21 | DRG 4 ==
LOC: ERS 08:48 → CCU 09:14
PROVIDERS: ADMIT Surgery; ATTEND Surgery
PROC: 4A133R1 Monitoring of Arterial Saturation, Peripheral, Percutaneous Approach (ICD-10-PCS; 2022-12-11)
PROC: 3E033XZ Introduction of Vasopressor into Peripheral Vein, Percutaneous Approach (ICD-10-PCS; 2022-12-11)
PROC: 0BH17EZ Insertion of Endotracheal Airway into Trachea, Via Natural or Artificial Opening (ICD-10-PCS; 2022-12-11)
PROC: 5A1945Z Respiratory Ventilation, 24-96 Consecutive Hours (ICD-10-PCS; 2022-12-11)
PROC: 5A0935A Assistance with Respiratory Ventilation, Less than 24 Consecutive Hours, High Flow/Velocity Cannula (ICD-10-PCS; 2022-12-15)
PROC: 5A1955Z Respiratory Ventilation, Greater than 96 Consecutive Hours (ICD-10-PCS; 2022-12-16)
PROC: 0BH18EZ Insertion of Endotracheal Airway into Trachea, Via Natural or Artificial Opening Endoscopic (ICD-10-PCS; 2022-12-16)
PROC: 3E03329 Introduction of Other Anti-infective into Peripheral Vein, Percutaneous Approach (ICD-10-PCS; 2022-12-16)
PROC: 0B978ZZ Drainage of Left Main Bronchus, Via Natural or Artificial Opening Endoscopic (ICD-10-PCS; 2022-12-16)
PROC: 0B938ZZ Drainage of Right Main Bronchus, Via Natural or Artificial Opening Endoscopic (ICD-10-PCS; 2022-12-16)
PROC: 0B113Z4 Bypass Trachea to Cutaneous, Percutaneous Approach (ICD-10-PCS; principal; 2022-12-18)
PROC: 0DH67UZ Insertion of Feeding Device into Stomach, Via Natural or Artificial Opening (ICD-10-PCS; 2022-12-18)
PROC: 3E0G76Z Introduction of Nutritional Substance into Upper GI, Via Natural or Artificial Opening (ICD-10-PCS; 2022-12-18)
PROC: 4A00X4Z Measurement of Central Nervous Electrical Activity, External Approach (ICD-10-PCS; 2022-12-18)
DX: S06.5XAA Traumatic subdural hemorrhage with loss of consciousness status unknown, initial encounter (principal); J96.00 Acute respiratory failure, unspecified whether with hypoxia or hypercapnia; G93.41 Metabolic encephalopathy; J96.01 Acute respiratory failure with hypoxia; A41.02 Sepsis due to Methicillin resistant Staphylococcus aureus; S22.20XA Unspecified fracture of sternum, initial encounter for closed fracture; S32.039A Unspecified fracture of third lumbar vertebra, initial encounter for closed fracture; S32.059A Unspecified fracture of fifth lumbar vertebra, initial encounter for closed fracture; N17.9 Acute kidney failure, unspecified; N18.5 Chronic kidney disease, stage 5; E87.20 Acidosis, unspecified; I13.11 Hypertensive heart and chronic kidney disease without heart failure, with stage 5 chronic kidney disease, or end stage renal disease; E87.1 Hypo-osmolality and hyponatremia; E87.0 Hyperosmolality and hypernatremia; E87.3 Alkalosis; S06.6XAA Traumatic subarachnoid hemorrhage with loss of consciousness status unknown, initial encounter; S02.19XA Other fracture of base of skull, initial encounter for closed fracture; E87.5 Hyperkalemia; F10.90 Alcohol use, unspecified, uncomplicated; R40.2430 Glasgow coma scale score 3-8, unspecified time; D63.1 Anemia in chronic kidney disease; E87.6 Hypokalemia; B95.62 Methicillin resistant Staphylococcus aureus infection as the cause of diseases classified elsewhere; W20.1XXA Struck by object due to collapse of building, initial encounter; Z96.642 Presence of left artificial hip joint; Z88.0 Allergy status to penicillin; Z87.81 Personal history of (healed) traumatic fracture; I95.9 Hypotension, unspecified; K21.9 Gastro-esophageal reflux disease without esophagitis; Z79.899 Other long term (current) drug therapy; R40.2432 Glasgow coma scale score 3-8, at arrival to emergency department; M43.16 Spondylolisthesis, lumbar region; E88.09 Other disorders of plasma-protein metabolism, not elsewhere classified; R00.1 Bradycardia, unspecified; E87.70 Fluid overload, unspecified
CPT/HCPCS: 31500; 31624; 36415; 36416; 36600; 51702; 70450; 71045; 71260; 72125; 72141; 72170; 74177; 76770; 80048; 80053; 80202; 81001; 82550; 82607; 82728; 82805; 83540; 83550; 83605; 83735; 83880; 83921; 84100; 84300; 84550; 85025; 85046; 85610; 85730; 86850; 86900; 86901; 87040; 87070; 87077; 87081; 87086; 87149; 87186; 87205; 93005; 93306; 94002; 94003; 94640; 95816; 95819; 95957; G0390; J0132; J0360; J0692; J1650; J1815; J1940; J1953; J2060; J2250; J2272; J2597; J2704; J3010; J3370; J3370-JW; J3480; J3490; J7050; J7070; J7620; Q9967; S0028